=== PATIENT | male | born 1950 | race Caucasian/White ===

== ENCOUNTER 2023-07-16 17:26 | Inpatient (IN) | payer MEDICARE ==
[~2023-07-16] VITALS: Ht 182.9 cm; Wt 77.1 kg
[2023-07-16 18:30] LABS: BASOPHILS % (AUTO) 0.3 % (0.0-2.0); EOSINOPHILS # (AUTO) 0.1 K/uL (0.0-0.7); EOSINOPHILS % (AUTO) 0.7 % (0.0-6.0); HEMATOCRIT 34 % (39-51); HEMOGLOBIN 10.6 g/dL (13.5-17.5); LYMPHOCYTES # (AUTO) 0.4 K/uL (0.8-4.8); LYMPHOCYTES % (AUTO) 4.1 % (20.0-44.0); MEAN CORPUSCULAR HEMOGLOBIN 26 PG (26.0-33.0); MEAN CORPUSCULAR HGB CONC 31 g/dl (31.0-36.0); MEAN CORPUSCULAR VOLUME 83 fL (80-96); MONOCYTES % (AUTO) 10.2 % (2.0-12.0); NEUTROPHILS # (AUTO) 8.4 K/uL (1.8-8.9); NEUTROPHILS % (AUTO) 84.7 % (43.0-81.0); PLATELET COUNT (AUTO) 340 K/uL (150-450); RED BLOOD CELL COUNT(AUTO) 4.15 MIL/uL (4.5-6.0); RED CELL DISTRIBUTION WIDTH 17.7 % (11.5-15.0); WHITE BLOOD COUNT (AUTO) 9.9 K/uL (4.3-11.0)
[2023-07-16 19:00] LABS: CALCIUM, SERUM 9.3 mg/dL (8.5-10.1); CARBON DIOXIDE 28 mmol/L (21-32); CHLORIDE 96 mmol/L (98-107); CREATININE 0.9 mg/dL (0.6-1.3); GLUCOSE 146 mg/dL (74-106); POTASSIUM 4.6 mmol/L (3.5-5.1); SODIUM SERUM 131 mmol/L (136-145); UREA NITROGEN, BLOOD 20 mg/dL (7-18)
[2023-07-16 19:07] LABS: ALANINE AMINOTRANSFERASE 31 U/L (12-78); ALBUMIN 2.3 g/dL (3.4-5.0); ALCOHOL, BLOOD < 3 mg/dL (0-10); ALKALINE PHOSPHATASE 179 U/L (46-116); ASPARTATE AMINOTRANSFERASE 31 U/L (15-37); BILIRUBIN,DIRECT 0.3 mg/dL (0.0-0.2); BILIRUBIN,TOTAL 0.5 mg/dL (0.2-1.0); TOTAL PROTEIN, SERUM 7.7 g/dL (6.4-8.2)
[2023-07-16 19:08] LABS: ACETAMINOPHEN 0 ug/ml (10-30)
[2023-07-16 19:33] LABS: APPEARANCE,URINE CLEAR (CLEAR); BILIRUBIN,URINE NEGATIVE (NEGATIVE); BLOOD, URINE NEGATIVE Ery/uL (NEGATIVE); COLOR,URINE YELLOW (YELLOW); KETONES,URINE NEGATIVE (NEGATIVE); LEUKOCYTE ESTERASE ,URINE NEGATIVE (NEGATIVE); NITRITE, URINE NEGATIVE (NEGATIVE); PH,URINE 8.5 (5.0-8.0); PROTEIN,URINE TRACE mg/dl (NEGATIVE); UGLUCOSE NEGATIVE (NEGATIVE)
[2023-07-16 19:44] LABS: ADD URINE CULTURE NO; BACTERIA,URINE None seen /HPF (None Seen); MUCUS,URINE Few /LPF (None Seen); RBC,URINE NONE SEEN /HPF (0-2); SQUAMOUS EPITHELIAL CELL,UR None Seen /HPF (None Seen); WBC,URINE NONE SEEN /HPF (0-3)
[2023-07-16 21:04] LABS: AMPHETAMINE, URINE NEGATIVE (NEGATIVE); BARBITURATE, URINE NEGATIVE (NEGATIVE); BENZODIAZEPINE, URINE NEGATIVE (NEGATIVE); CANNABINOID, URINE NEGATIVE (NEGATIVE); COCCAINE, URINE NEGATIVE (NEGATIVE); OPIATE, URINE NEGATIVE (NEGATIVE); PHENCYCLIDINE SCREEN,URINE NEGATIVE (NEGATIVE)
[2023-07-17] MEDS ORDERED: MAG HYDROX/AL HYDROX/SIMETH 30 ML UDC PO PRN
[2023-07-17] MEDS ORDERED: Z GUARD REMEDY 4 OZ OINT TP PRN
[2023-07-17] MEDS ORDERED: ACETAMINOPHEN 325 MG TABLET PO PRN
[2023-07-17] MEDS ORDERED: ONDANSETRON HCL/PF 4 MG/2 ML VIAL IVP PRN
[2023-07-17] MEDS ORDERED: MAGNESIUM HYDROXIDE 30 ML UDC PO PRN
[2023-07-17] MEDS ORDERED: APIX5TAB4 GT (04:21)
[2023-07-17] MEDS ORDERED: TAMS-12 GT (05:33)
[2023-07-17] MEDS ORDERED: PANT40TA49 GT (05:33)
[2023-07-17] MEDS ORDERED: FAMO40TA7 GT (05:33)
[2023-07-17] MEDS ORDERED: ESCI10TA GT (05:33)
[2023-07-17] MEDS ORDERED: METO-295 GT (05:33)
[2023-07-17] MEDS ORDERED: APIX5TAB GT (07:35)
[2023-07-17] MEDS: PANTOPRAZOLE 40 MG TABLET.DR PO SCH (10:00)
[2023-07-17] MEDS ORDERED: ESCITALOPRAM OXALATE (10 MG) 10 MG TABLET GT SCH (10:00)
[2023-07-17] MEDS ORDERED: ALPRAZOLAM 0.25 MG TABLET PO PRN (10:00)
[2023-07-17] MEDS: APIXABAN 5 MG TABLET GT SCH ×2 (10:00→16:18)
[2023-07-17] MEDS: IV NS 0.9% 1,000 ML IV PRN ×2 (11:27→18:31)
[2023-07-17 16:12] LABS: URINE SODIUM, RANDOM 115 mmol/l (40-220)
[2023-07-17 16:21] LABS: AMPHETAMINE, URINE NEGATIVE (NEGATIVE); BARBITURATE, URINE NEGATIVE (NEGATIVE); BENZODIAZEPINE, URINE NEGATIVE (NEGATIVE); CANNABINOID, URINE NEGATIVE (NEGATIVE); COCCAINE, URINE NEGATIVE (NEGATIVE); OPIATE, URINE NEGATIVE (NEGATIVE); PHENCYCLIDINE SCREEN,URINE NEGATIVE (NEGATIVE)
[2023-07-17] MEDS ORDERED: NUTREN PULMONARY 1,000 ML BAG GT PRN (18:30)
[2023-07-17 20:00] VITALS: BP 123/76; TEMP 98.4; O2SAT 100
[2023-07-17] MEDS ORDERED: TAMSULOSIN 0.4 MG CAP.SR.24H GT SCH (22:00)
[2023-07-18] MEDS: IV NS 0.9% 1,000 ML IV PRN ×2 (01:19→08:06)
[2023-07-18 04:00] VITALS: BP 115/57; TEMP 99; O2SAT 95
[2023-07-18] MEDS ORDERED: GLUCERNA 1.2 1,000 ML BOTTLE JT PRN ×2 (05:00→10:30)
[2023-07-18] MEDS: PANTOPRAZOLE 40 MG TABLET.DR PO SCH (05:45)
[2023-07-18] MEDS ORDERED: FAMOTIDINE (20 MG) 20 MG TABLET GT SCH (06:00)
[2023-07-18 07:41] LABS: CALCIUM, SERUM 7.1 mg/dL (8.5-10.1); CREATININE 0.6 mg/dL (0.6-1.3); MAGNESIUM 1.7 mg/dL (1.8-2.4); PHOSPHORUS 2.7 mg/dL (2.5-4.9); POTASSIUM 4.4 mmol/L (3.5-5.1)
[2023-07-18 07:47] LABS: THYROID STIMULATING HORMONE 2.929 uIU/mL (0.358-3.74); URIC ACID 3.6 mg/dL (2.6-7.2)
[2023-07-18] MEDS: APIXABAN 5 MG TABLET GT SCH (08:06)
[2023-07-18] MEDS ORDERED: ESCITALOPRAM OXALATE (10 MG) 10 MG TABLET PO SCH (09:00)
[2023-07-18] MEDS ORDERED: MAGNESIUM OXIDE 400 MG TABLET NG ONE (10:00)
[2023-07-18] MEDS ORDERED: ALPR0.255 PO (10:53)
[2023-07-18] MEDS ORDERED: ESCI10TA PO (10:53)
[2023-07-18] MEDS ORDERED: METOCLOPRAMIDE HCL 10 MG/2 ML VIAL IV PRN (13:00)
[2023-07-18 19:16] LABS: OSMOLALITY,URINE 868 mOS/kg (340-1090)
[2023-07-19] MEDS ORDERED: ESCITALOPRAM OXALATE (10 MG) 10 MG TABLET PO SCH (09:00)
== END 2023-07-18 18:35 | disposition home or self-care (01) | DRG 917 ==
LOC: ER 17:28 → MEDSG1 07-17 03:32
PROVIDERS: ADMIT Nurse Practitioner Acute Care; ATTEND Nurse Practitioner Acute Care
DX: T42.4X2A Poisoning by benzodiazepines, intentional self-harm, initial encounter (principal); G92.9 Unspecified toxic encephalopathy; R45.851 Suicidal ideations; E44.0 Moderate protein-calorie malnutrition; E87.1 Hypo-osmolality and hyponatremia; E86.0 Dehydration; F39 Unspecified mood [affective] disorder; Z85.01 Personal history of malignant neoplasm of esophagus; D64.9 Anemia, unspecified; Z92.21 Personal history of antineoplastic chemotherapy; Z86.711 Personal history of pulmonary embolism; Z86.16 Personal history of COVID-19; Z87.01 Personal history of pneumonia (recurrent); Z87.19 Personal history of other diseases of the digestive system; Z87.09 Personal history of other diseases of the respiratory system; Z79.899 Other long term (current) drug therapy; Z93.4 Other artificial openings of gastrointestinal tract status; Z79.01 Long term (current) use of anticoagulants; E88.09 Other disorders of plasma-protein metabolism, not elsewhere classified; Y92.9 Unspecified place or not applicable; N40.0 Benign prostatic hyperplasia without lower urinary tract symptoms; K21.9 Gastro-esophageal reflux disease without esophagitis; F43.21 Adjustment disorder with depressed mood; F32.9 Major depressive disorder, single episode, unspecified; Z74.09 Other reduced mobility; E86.9 Volume depletion, unspecified
CPT/HCPCS: 36415; 80048-TC; 80076-TC; 81001; 83735-TC; 83935-TC; 84100-TC; 84300-TC; 84443-TC; 84550-TC; 85025-TC; A4223; G0378; G0480; J2405; J2765; J3490; J7030